=== PATIENT | female | born 1950 | race Caucasian/White ===

== ENCOUNTER 2021-03-17 12:45 | Outpatient (CLI) | payer OTHER | END 2021-03-17 12:46 | disposition home or self-care (01) | LOC: CSHMAMMO 12:45 | PROVIDERS: ATTEND Internal Medicine | DX: Z08 Encounter for follow-up examination after completed treatment for malignant neoplasm (principal); Z85.3 Personal history of malignant neoplasm of breast | CPT/HCPCS: 77066; G0279 ==

== ENCOUNTER 2022-06-16 14:40 | Outpatient (CLI) | payer OTHER | END 2022-06-16 14:41 | disposition home or self-care (01) | LOC: CSHMAMMO 14:40 | PROVIDERS: ATTEND Internal Medicine | DX: Z12.31 Encounter for screening mammogram for malignant neoplasm of breast (principal); Z80.3 Family history of malignant neoplasm of breast; Z98.890 Other specified postprocedural states | CPT/HCPCS: 77063; 77067 ==

== ENCOUNTER 2022-11-14 10:41 | Outpatient (CLI) | payer OTHER ==
[~2022-11-14 10:41] MED LIST: Iopamidol 370 76% 50 ML VIAL FS ONE
== END 2022-11-14 10:42 | disposition home or self-care (01) ==
LOC: CSHCT 10:41
PROVIDERS: ATTEND Physician Assistant Medical
DX: K52.9 Noninfective gastroenteritis and colitis, unspecified (principal); R16.1 Splenomegaly, not elsewhere classified; K83.8 Other specified diseases of biliary tract; K62.89 Other specified diseases of anus and rectum; N28.1 Cyst of kidney, acquired
CPT/HCPCS: 74177

== ENCOUNTER 2023-01-27 12:52 | Outpatient (CLI) | payer OTHER ==
[~2023-01-27 12:52] MED LIST changes: +Iopamidol 370 76% 100 ML VIAL ONE; -Iopamidol 370 76% 50 ML VIAL FS ONE
== END 2023-01-27 12:53 | disposition home or self-care (01) ==
LOC: CSHCT 12:52
PROVIDERS: ATTEND Thoracic Surgery (Cardiothoracic Vascular Surgery)
DX: I72.8 Aneurysm of other specified arteries (principal); I77.1 Stricture of artery; I70.203 Unspecified atherosclerosis of native arteries of extremities, bilateral legs; R91.8 Other nonspecific abnormal finding of lung field; K31.89 Other diseases of stomach and duodenum
CPT/HCPCS: 75635; 82565; Q9967

== ENCOUNTER 2023-08-30 13:59 | Outpatient (CLI) | payer OTHER | END 2023-08-30 14:00 | disposition home or self-care (01) | LOC: CSHMAMMO 13:59 | PROVIDERS: ATTEND Internal Medicine | DX: M81.0 Age-related osteoporosis without current pathological fracture (principal); M85.851 Other specified disorders of bone density and structure, right thigh; M85.852 Other specified disorders of bone density and structure, left thigh | CPT/HCPCS: 77080 ==

== ENCOUNTER 2024-10-08 12:43 | Outpatient (CLI) | payer OTHER | END 2024-10-08 12:44 | disposition home or self-care (01) | LOC: CSHMAMMO 12:43 | PROVIDERS: ATTEND Internal Medicine | DX: Z12.31 Encounter for screening mammogram for malignant neoplasm of breast (principal); Z80.3 Family history of malignant neoplasm of breast; Z98.890 Other specified postprocedural states | CPT/HCPCS: 77063; 77067 ==